=== PATIENT | male | born 1970 | race African-American/Black ===

== ENCOUNTER 2020-12-15 11:01 | Emergency (ER) | payer OTHER, SELFPAY ==
[2020-12-15] MEDS ORDERED: Fluorescein Opthalmic Strip ONE (11:22)
[2020-12-15] MEDS ORDERED: Tetracaine HCl 0.5% Ophth Soln 2 ML Bottle ONE (11:23)
== END 2020-12-15 12:15 | disposition home or self-care (01) ==
LOC: NAV ERS 11:01
DX: T65.891A Toxic effect of other specified substances, accidental (unintentional), initial encounter (principal); H10.213 Acute toxic conjunctivitis, bilateral; I10 Essential (primary) hypertension
CPT/HCPCS: 99283

== ENCOUNTER 2021-09-23 10:21 | Emergency (ER) | payer SELFPAY ==
[~2021-09-23 10:21] MED LIST: Iopamidol 370 76% 100 ML VIAL ONE
[2021-09-23] MEDS ORDERED: Fentanyl 100 MCG/2 ML VIAL ONE (10:58)
[2021-09-23] MEDS ORDERED: Promethazine HCl 25 MG/ML VIAL ONE (10:59)
[2021-09-23] MEDS ORDERED: Sodium Chloride 0.9% 1,000 ML ONE (10:59)
[2021-09-23] MEDS ORDERED: Pantoprazole 40 MG VIAL ONE (10:59)
[2021-09-23 11:02] LABS: Hemoglobin 11.7 g/dL (14.0-18.0); Mean Corpuscular HGB CONC 31.2 g/dL (32.0-36.0); Mean Corpuscular Hemoglobin 34.3 pg (27.0-31.0); Platelet Count 154 thou/uL (130-400); RBC Distribution Width 13.4 % (11.5-14.5); Red Blood Cell (RBC) Count 3.42 mill/uL (4.70-6.10); White Blood Cell (WBC) Count 4.7 thou/uL (4.8-10.8)
[2021-09-23 11:20] LABS: Eosinophils 1 % (0-10); Lymphocytes 56 % (21-51); MDiff Complete? YES; Macrocytosis SLIGHT = 6-15 cells (100X) (0-5/hpf); Monocytes 5 % (0-10); Neutrophil 38 % (42-75); Platelet Morphology Comment Appears Adequate
[2021-09-23 11:21] LABS: ALT (SGPT) 50 U/L (8-55); AST (SGOT) 69 U/L (5-34); Albumin 3.8 g/dL (3.5-5.0); Alkaline Phosphatase 79 U/L (40-110); Anion Gap 16 mmol/L (10-20); BUN (Urea Nitrogen) 19 mg/dL (8.4-25.7); Bilirubin, Total 0.7 mg/dL (0.2-1.2); CK (CPK) 136 U/L (30-200); Calc. Creatinine Clearance 0 mL/min (70-130); Calcium 8.9 mg/dL (7.8-10.44); Carbon Dioxide 22 mmol/L (22-29); Chloride 103 mmol/L (98-107); Globulin 3.6 g/dL (2.4-3.5); Glucose 138 mg/dL (70-105); Lipase 18 U/L (8-78); Potassium 4.3 mmol/L (3.5-5.1); Protein, Total 7.4 g/dL (6.0-8.3); Sodium 137 mmol/L (136-145)
[2021-09-23 11:24] LABS: Bilirubin Negative (Negative); Blood, Urine Negative (Negative); Clarity Clear (Clear); Glucose, Urine (Dipstick) Negative (Negative); Ketone, Urine Negative (Negative); Leukocyte Negative (Negative); Nitrite Negative (Negative); Protein, Urine (Dipstick) Negative (Neg-Trace); Urobilinogen 0.2 mg/dL (Less than 2)
[2021-09-23 11:25] LABS: Specific Gravity, Urine 1.025 (1.002-1.036)
[2021-09-23] MEDS ORDERED: Cipro 250 MG TAB ONE (13:38)
== END 2021-09-23 13:47 | disposition home or self-care (01) ==
LOC: NAV ERS 10:21
DX: K52.9 Noninfective gastroenteritis and colitis, unspecified (principal); I10 Essential (primary) hypertension
CPT/HCPCS: 71045; 74177; 80053; 81003; 82550; 83605; 83690; 84484; 85025; 93005; 96365; 96375; C9113; J2550; J3010; J7050; Q9967

== ENCOUNTER 2023-05-11 10:01 | Outpatient (CLI) | payer OTHER | END 2023-05-11 10:02 | disposition home or self-care (01) | LOC: NAV RAD 10:01 | PROVIDERS: ATTEND Nurse Practitioner Family | DX: M51.16 Intervertebral disc disorders with radiculopathy, lumbar region (principal); M51.17 Intervertebral disc disorders with radiculopathy, lumbosacral region; M43.16 Spondylolisthesis, lumbar region; M47.26 Other spondylosis with radiculopathy, lumbar region | CPT/HCPCS: 72100 ==

== ENCOUNTER 2023-06-09 00:45 | Emergency (ER) | payer OTHER ==
[2023-06-09 01:17] LABS: Bilirubin Negative (Negative); Blood, Urine Negative (Negative); Clarity Clear (Clear); Glucose, Urine (Dipstick) Negative (Negative); Ketone, Urine Negative (Negative); Leukocyte Trace (Negative); Nitrite Negative (Negative); Protein, Urine (Dipstick) Negative (Neg-Trace); Specific Gravity, Urine 1.025 (1.005-1.030); pH, Urine 5.5 (5.0-9.0)
[2023-06-09 01:20] LABS: Bacteria/HPF None Seen HPF (None Seen); CAUTI Indications for Culture Pelvic or flank pain; RBC/HPF 0-3 HPF (0-3); Squamous Epithelial 0-3 HPF (0-3); Urine Culture Reflex No No
[2023-06-09 01:36] LABS: #Basophils 0.1 thou/uL (0.0-0.2); #Lymphocytes 1.3 thou/uL (1.20-3.40); #Monocytes 0.8 thou/uL (0.11-0.59); #Neutrophils 7.8 thou/uL (1.40-6.50); %Basophils 0.6 % (0.0-1.0); %Eosinophils 0.3 % (0.0-10.0); %Lymphocytes 12.8 % (21.0-51.0); %Monocytes 8.2 % (0.0-10.0); %Neutrophils 78.1 % (42.0-75.0); Hematocrit 30.4 % (42.0-52.0); Hemoglobin 10.2 g/dL (14.0-18.0); Mean Corpuscular HGB CONC 33.7 g/dL (32.0-36.0); Mean Corpuscular Hemoglobin 32.8 pg (27.0-31.0); Mean Corpuscular Volume 97.5 fl (78.0-98.0); Mean Platelet Volume 9.3 fL (7.4-10.4); Platelet Count 113 10x3/uL (130-400); RBC Distribution Width 11.8 % (11.5-14.5); Red Blood Cell (RBC) Count 3.11 mill/uL (4.70-6.10); White Blood Cell (WBC) Count 9.9 10x3/uL (4.8-10.8)
[2023-06-09] MEDS ORDERED: Morphine 4 MG/ML VIAL ONE (01:40)
[2023-06-09 02:16] LABS: ALT (SGPT) 40 U/L (8-55); AST (SGOT) 64 U/L (5-34); Albumin 3.4 g/dL (3.5-5.0); Alkaline Phosphatase 77 U/L (40-110); Anion Gap 15 mmol/L (10-20); BUN (Urea Nitrogen) 15 mg/dL (8.4-25.7); Bilirubin, Total 0.6 mg/dL (0.2-1.2); Calc. Creatinine Clearance 0 mL/min (70-130); Calcium 8.9 mg/dL (7.8-10.44); Carbon Dioxide 19 mmol/L (22-29); Chloride 101 mmol/L (98-107); Estimated GFR 102; Globulin 4.7 g/dL (2.4-3.5); Glucose 111 mg/dL (70-105); Potassium 4.7 mmol/L (3.5-5.1); Protein, Total 8.1 g/dL (6.0-8.3); Sodium 130 mmol/L (136-145)
== END 2023-06-09 02:25 | disposition short-term general hospital (02) ==
LOC: NAV ERS 00:45
DX: N50.812 Left testicular pain (principal); N44.00 Torsion of testis, unspecified; D64.9 Anemia, unspecified; D69.6 Thrombocytopenia, unspecified; R10.9 Unspecified abdominal pain; I10 Essential (primary) hypertension
CPT/HCPCS: 80053; 81001; 85025; 96374; J2270

== ENCOUNTER 2023-10-08 19:11 | Emergency (ER) | payer OTHER ==
[2023-10-08] MEDS ORDERED: Ketorolac Tromethamine 60 MG/2 ML VIAL ONE (19:59)
[2023-10-08] MEDS ORDERED: Morphine 4 MG/ML VIAL ONE (19:59)
== END 2023-10-08 20:20 | disposition home or self-care (01) ==
LOC: NAV ERS 19:11
DX: M54.17 Radiculopathy, lumbosacral region (principal); I10 Essential (primary) hypertension
CPT/HCPCS: 96372; 99283; J1885; J2270

== ENCOUNTER 2023-12-19 14:06 | Outpatient (CLI) | payer OTHER | END 2023-12-19 14:07 | disposition home or self-care (01) | LOC: NAV RAD 14:06 | PROVIDERS: ATTEND Nurse Practitioner Family | DX: M25.561 Pain in right knee (principal); M25.562 Pain in left knee; M17.11 Unilateral primary osteoarthritis, right knee ==

== ENCOUNTER 2024-02-25 14:10 | Emergency (ER) | payer OTHER ==
[2024-02-25] MEDS ORDERED: Bupivacaine 0.5% 10 ML VIAL ONE (15:09)
[2024-02-25] MEDS ORDERED: Lidocaine Viscous Sol 2% 15 ml UD Cup ONE (15:10)
[2024-02-25] MEDS ORDERED: Lidocaine 1% (PF) 30 ML VIAL ONE (15:10)
== END 2024-02-25 15:30 | disposition home or self-care (01) ==
LOC: NAV ERS 14:10
DX: K04.4 Acute apical periodontitis of pulpal origin (principal); I10 Essential (primary) hypertension; Z79.899 Other long term (current) drug therapy
CPT/HCPCS: 64400; J3490

== ENCOUNTER 2025-04-01 14:06 | Emergency (ER) | payer OTHER | END 2025-04-01 15:49 | disposition home or self-care (01) | LOC: NAV ERS 14:06 | DX: L23.7 Allergic contact dermatitis due to plants, except food (principal); L03.116 Cellulitis of left lower limb; I10 Essential (primary) hypertension | CPT/HCPCS: 99282 ==